=== PATIENT | male | born 1950 | race Caucasian/White ===

== ENCOUNTER 2020-10-12 04:36 | Day surgery (SDC) | payer OTHER ==
[2020-10-11 11:51] VITALS: BMI 27.9
[2020-10-12] MEDS ORDERED: PROPOFOL 20 ML ONE (12:16)
[2020-10-12] MEDS ORDERED: SUCCINYLCHOLINE CHLORIDE 200 MG/10 ML SYRINGE ONE (12:16)
[2020-10-12] MEDS ORDERED: BUPIVACAINE HCL 100 ML ONE (12:29)
[2020-10-12] MEDS ORDERED: LIDOCAINE HCL 1%, 10 MG/ML (20ML VIAL) ONE (12:29)
[2020-10-12] MEDS ORDERED: BENZOIN/ALOE VERA/STORAX/TOLU 58 ML BOTTLE ONE (12:38)
[2020-10-12] MEDS ORDERED: ceFAZolin SODIUM 1 GM VIAL IVPB ONE ×2 (12:42→13:10)
[2020-10-12] MEDS ORDERED: DEXAMETHASONE SOD PHOSPHATE 4 MG/1 ML VIAL ONE (12:56)
[2020-10-12] MEDS ORDERED: LIDOCAINE HCL/PF 2% SDV 5ML VIAL ONE (13:05)
[2020-10-12] MEDS ORDERED: ceFAZolin SODIUM 1 GM VIAL ONE (13:10)
[2020-10-12] MEDS ORDERED: BUPIVACAINE HCL/PF 0.5% (5MG/ML) 10 ML VIAL IJ ONE (13:20)
[2020-10-12] MEDS ORDERED: LIDOCAINE HCL 1%, 10 MG/ML (20ML VIAL) NR ONE (13:20)
[2020-10-12] MEDS ORDERED: DEXAMETHASONE SOD PHOSPHATE 4 MG/1 ML VIAL NR ONE (13:20)
[2020-10-12 16:06] VITALS: PULSE 70; TEMP 97.6
[2020-10-12 19:00] VITALS: BP 185/80
== END 2020-10-12 18:50 | disposition home or self-care (01) ==
LOC: JASU-SURG 04:36
PROVIDERS: ATTEND Podiatrist Foot Surgery
PROC: 0QSP04Z Reposition Left Metatarsal with Internal Fixation Device, Open Approach (ICD-10-PCS; principal; 2020-10-12 13:00)
DX: M20.12 Hallux valgus (acquired), left foot (principal)
CPT/HCPCS: 28298; L8699; 71045-TC-FY; 88304-TC; 88311-TC; 94760